=== PATIENT | female | born 1995 | race Caucasian/White ===

== ENCOUNTER 2019-12-15 16:53 | Emergency (ER) | payer BC, SELFPAY ==
[~2019-12-15] VITALS: Ht 157.5 cm; Wt 74.8 kg
[2019-12-15 18:21] VITALS: Ht 157.5 cm; Wt 74.8 kg
[2019-12-15 19:14] VITALS: BP 108/73
== END 2019-12-15 19:14 | disposition home or self-care (01) ==
LOC: ED 16:53
DX: R19.7 Diarrhea, unspecified (principal); R10.9 Unspecified abdominal pain; R51 Headache; R42 Dizziness and giddiness; R50.9 Fever, unspecified; Z20.828 Contact with and (suspected) exposure to other viral communicable diseases
CPT/HCPCS: U0003-CS